=== PATIENT | male | born 1990 | race Caucasian/White ===

== ENCOUNTER 2017-02-27 11:59 | Emergency (ER) | payer OTHER ==
[2017-02-27] MEDS ORDERED: HYDROcodone-APAP 5 MG -325 MG TABLET PO ONE (12:19)
[2017-02-27] MEDS ORDERED: LORazepam 1 MG TABLET PO ONE (12:19)
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
[2017-02-27 13:10] VITALS: RESP 14; TEMP 98.5
== END 2017-02-27 13:37 | disposition home or self-care (01) ==
LOC: ER 11:59
DX: M54.2 Cervicalgia (principal); R20.0 Anesthesia of skin; M54.5 Low back pain; V43.52XA Car driver injured in collision with other type car in traffic accident, initial encounter; Y92.411 Interstate highway as the place of occurrence of the external cause
CPT/HCPCS: 72052; 72100; 99283